=== PATIENT | female | born 1995 | race Caucasian/White ===

== ENCOUNTER 2019-01-28 10:12 | Emergency (ER) | payer BC ==
[~2019-01-28] VITALS: Ht 172.7 cm; Wt 99.8 kg
--- OUTSIDE RECORDS SUMMARY | 2019-01-28 10:16 | XMS REPORT | Summary of Care ---
Author Author Simeon Piper Unknown Address Unknown Phone Unavailable Care Team Providers Care Vocational Director Name Role Phone DIANA Hinkle, RONALDO Unavailable Unavailable STACIE SOLIS [place], ZENY LOVELL Unavailable Unavailable STACIE Mendes, ZENY Unavailable Unavailable HUSSEIN SOLIS VA, ROSELYN Arzola Unavailable Unavailable Unavailable Unavailable Functional Status Name Dates Details Functional status health issues are not documented Status: Name Dates Details Cognitive status health issues are not documented Status: Problems Name Dates Details Murmur (785.2, R01.1) Status: Active Encounter for immunization (V03.89, Z23) Status: Active Family planning education, guidance, and counseling (V25.09, Z30.09) Status: Active Visit for gynecologic examination (V72.31, Z01.419) Status: Active Hypertrophy of tonsil (474.11, J35.1) Status: Active Myalgia and myositis (729.1) Status: Active Heat intolerance (780.99, R68.89) Status: Active Dyspnea (786.09, R06.00) Status: Active Chest pain (786.50, R07.9) Status: Active Palpitations (785.1, R00.2) Status: Active Asthma (493.90, J45.909) Status: Active Bereavement (V62.82, Z63.4) Status: Active Depression with anxiety (300.4, F41.8) Status: Active Encounter for smoking cessation counseling (V65.42, Z71.6) Status: Active Insomnia (780.52, G47.00) Status: Active Overweight (278.02, E66.3) Status: Active Adult BMI 31.0-31.9 kg/sq m (V85.31, Z68.31) Status: Active control (V25.9, Z30.9) Status: Active Menstrual cramps (625.3, N94.6) Status: Active Encounter for annual routine gynecological examination (V7., Z01.419) Status: Active Vesicular rash (782.1, R23.8) Status: Active Sore throat (462, J02.9) Status: Active Fatigue (780.79, R53.83) Status: Active Dry skin dermatitis (692.89, L85.3) Status: Active Skin lesion (709.9, L98.9) Status: Active Influenza A (487.1, J10.1) Status: Active Influenza A (487.1, J10.1) Status: Active Pyrexia (780.60, R50.9) Status: Active Sore throat (462, J02.9) Status: Active Acute bacterial pharyngitis (462, J02.8) Status: Active Medications Name Dates Details Lidocaine Viscous 2 % Mouth/Throat Solution 5 ml gargle and spit every 4 hours as needed for sorethroat Quantity: 50 ORTIZ N.P., RONALDO * Start : 17-Sep-2018 Active Allergies and Adverse Reactions Name Dates Details No Known Drug Allergies (Allergy) Status: Active Past Medical History Name Dates Details History of acne (V13.3, Z87.2) Status: Resolved History of Childhood asthma (493.00, J45.909) Status: Resolved History of Day care physical, encounter for (V70.3, Z02.0) Status: Resolved History of Encounter for examination for participation in sport (V70.3, Z02.5) Status: Resolved History of mitral valve prolapse (V12.59, Z86.79) Status: Resolved History of Sore throat (462, J02.9) Status: Resolved History of Upper respiratory infection, acute (465.9, J06.9) Status: Resolved Procedures Procedure Dates Details History of Ear Pressure Equalization Tube, Insertion Completed Immunization Name Dates Details Hepatitis B on: 1995 Hepatitis B on: 1995 IPV on: 1995 DTaP - HIB on: 1995 IPV on: 1995 DTaP - HIB on: 1995 IPV on: 1995 DTaP - HIB on: 1995 Measles virus vaccine on: 1995 Hepatitis B on: 10-Mar-1996 DTaP on: 04-Feb-1997 HIB on: 04-Feb-1997 MMR on: 04-Feb-1997 DTaP - HIB on: 30-Apr-2000 Varicella on: 30-Apr-2000 MMR on: 01-May-2000 Meningo (Menactra) on: 13-Mar-2007 Td on: 13-Mar-2007 Menactra Intramuscular Injectable Lot #: [id number] on: 21-Jan-2014 Family History Name Dates Details Family history of diabetes mellitus (V18.0, Z83.3) Status: Active Name Dates Details Family history of Cancer Status: Active Family history of Hypertension (V17.49) Status: Active Name Dates Details Family history of heart murmur (V17.49, Z82.49) Status: Active Family history of thyroid disease (V18.19, Z83.49) Status: Active Social History Name Dates Details - Status: Name Dates Details Never smoker Vital Signs Date Test Result Details No Known Vitals to report Results Date Description Value Details Results not documented Plan of Care Name Dates Details Planned Observations Planned Goals not documented Planned Encounters Appointment; RONALDO ORTIZ NP On: 25-Oct-2018 15:00 Instructions Name Dates Details Instructions not documented Encounters Appointment; JARRETT VALENZUELA M.D. Encounter Diagnosis: Problem not documented On: 15-Feb-2017 15:20 Appointment; DOTTIE HERNÁNDEZ NP Encounter Diagnosis: Problem not documented On: 01-May-2017 18:45 Appointment; ZENY QUINONES M.D. Encounter Diagnosis: Problem not documented On: 06-Aug-2017 16:00 Appointment; JUNG BLANCO P.A. Encounter Diagnosis: Problem not documented On: 03-Jun-2018 13:00 Appointment; RONALDO ORTIZ NP Encounter Diagnosis: Problem not documented On: 17-Sep-2018 11:00
[2019-01-28] MEDS ORDERED: MORPHINE SULFATE INJ 4 MG/ML INJ 1ML IV STA (10:44)
[2019-01-28] MEDS ORDERED: SODIUM CHLORIDE 0.9% 1000ML 1,000 ML IV STA (10:44)
[2019-01-28] MEDS ORDERED: ONDANSETRON HCL INJ 2MG/ML 2ML 2 MG/ML VIAL IV STA (10:44)
[2019-01-28 11:15] LABS: BILIRUBIN,URINE NEGATIVE (NEGATIVE); CLARITY,URINE SL CLOUDY (CLEAR); COLOR,URINE YELLOW (YELLOW); KETONES,URINE NEGATIVE (NEGATIVE); LEUKOCYTE ESTERASE ,URINE NEGATIVE (NEGATIVE); NITRITE,URINE NEGATIVE (NEGATIVE); PROTEIN,URINE DIPSTICK NEGATIVE (NEGATIVE); URINE UROBILINOGEN 0.2 mg/dL (0.2 - 1)
[2019-01-28 11:20] LABS: PREGNANCY TEST, URINE NEGATIVE (NEGATIVE)
[2019-01-28 11:27] LABS: BACTERIA,URINE RARE /HPF; EPITHELIAL CELLS,URINE FEW /LPF; RBC,URINE 0-5 /HPF (0-5)
--- NOTE | 2019-01-28 11:58 | Diagnostic Imaging Report ---
EXAM: Right upper quadrant abdominal ultrasound INDICATION: Right upper quadrant pain COMPARISON: None. TECHNIQUE: Transverse and longitudinal images of the right upper quadrant abdomen were obtained FINDINGS: Liver: Size: 17.4 cm in the right midclavicular line, normal Appearance: Increased echogenicity, smooth contour Mass: No focal masses Gallbladder: There is cholelithiasis. No gallbladder wall thickening (3.4 mm). No pericholecystic fluid. Bile Ducts: Nondilated Intrahepatic Ducts: No dilatation Extrahepatic Ducts: Common bile duct measures 0.4cm, no dilatation Pancreas: Visualized portions of the pancreatic head, neck and proximal body are normal. Kidney: The right kidney measures 11.2 cm without evidence of hydronephrosis or stone. Vessels: Aorta: Visualized portions are normal Inferior Vena Cava: Visualized portions are normal Main Portal Vein: 0.8 cm, normal size with hepatopetal flow. Free Fluid: No ascites or pleural effusion IMPRESSION: Cholelithiasis. No sonographic evidence of cholecystitis. Hepatic steatosis. Signed by: Linda Mistry MD on 01/28/2019 11:54 AM
[2019-01-28 14:00] LABS: BASOPHILS # (AUTO) 0.1 (0.0-0.1); BASOPHILS % 0.7 % (0.0-1.0); EOSINOPHILS # (AUTO) 0.1 (0.0-0.4); EOSINOPHILS % 0.9 % (0.0-6.0); HEMATOCRIT 44.8 % (34.2-44.1); HEMOGLOBIN 14.1 g/dL (12.0-16.0); LYMPHOCYTES # (AUTO) 2.5 (1.0-3.2); LYMPHOCYTES % 31.2 % (18.0-39.1); MEAN CORPUSCULAR HEMOGLOBIN 25.5 pg (28-32); MEAN CORPUSCULAR HGB CONC 31.5 g/dL (31-35); MONOCYTES # (AUTO) 0.5 (0.2-0.8); MONOCYTES % 6.5 % (4.4-11.3); NEUTROPHILS # (AUTO) 4.8 (2.1-6.9); NEUTROPHILS % 60.2 % (38.7-80.0); PLATELET COUNT 244 x10e3/uL (140-360); RED BLOOD COUNT 5.53 x10e6/uL (3.6-5.1); RED CELL DISTRIBUTION WIDTH 14.1 % (11.7-14.4)
[2019-01-28 14:19] LABS: ALANINE AMINOTRANSFERASE 17 IU/L (0-55); ALBUMIN 4.5 g/dL (3.5-5.0); ALBUMIN/GLOBULIN RATIO 1.2 (0.8-2.0); ALKALINE PHOSPHATASE 102 IU/L (40-150); AMYLASE 38 U/L (25-125); ANION GAP 15.5 mmol/L (8-16); BLOOD UREA NITROGEN 11 mg/dL (7-26); BUN/CREATININE RATIO 14 (6-25); CARBON DIOXIDE 23 mmol/L (22-29); CHLORIDE 105 mmol/L (98-107); CREATININE, SERUM 0.76 mg/dL (0.57-1.11); EST GLOMERULAR FILTRATION RATE > 60 ML/MIN (60-); GLUCOSE 80 mg/dL (74-118); LIPASE 17 U/L (8-78); POTASSIUM 4.5 mmol/L (3.5-5.1); SODIUM 139 mmol/L (136-145)
[2019-01-28 15:25] VITALS: BP 114/65
== END 2019-01-28 15:36 | disposition home or self-care (01) ==
LOC: ER 10:12
DX: R10.11 Right upper quadrant pain (principal); R11.0 Nausea; K80.20 Calculus of gallbladder without cholecystitis without obstruction
CPT/HCPCS: 36415; 76705; 80053; 81001; 81025; 82150; 83690; 85025; 99284; J2270; J2405; J7030